=== PATIENT | female | born 2000 | race Caucasian/White ===

== ENCOUNTER 2019-02-10 05:53 | Emergency (ER) | payer OTHER ==
[~2019-02-10] VITALS: Ht 165.1 cm; Wt 96.2 kg
[2019-02-10 05:57] VITALS: Ht 165.1 cm; Wt 96.2 kg
[2019-02-10 07:20] VITALS: BP 122/76
== END 2019-02-10 07:20 | disposition home or self-care (01) ==
LOC: ED 05:53
DX: T20.40XA Corrosion of unspecified degree of head, face, and neck, unspecified site, initial encounter (principal); T23.401A Corrosion of unspecified degree of right hand, unspecified site, initial encounter; T32.0 Corrosions involving less than 10% of body surface; F17.200 Nicotine dependence, unspecified, uncomplicated; E66.9 Obesity, unspecified; Z68.35 Body mass index [BMI] 35.0-35.9, adult; Y93.89 Activity, other specified; Y92.009 Unspecified place in unspecified non-institutional (private) residence as the place of occurrence of the external cause; Y99.8 Other external cause status
CPT/HCPCS: 90715; 99406; J1885